=== PATIENT | female | born 1975 | race Caucasian/White ===

== ENCOUNTER 2022-10-15 19:31 | Emergency (ER) | payer BC ==
[2022-10-15] MEDS ORDERED: AUGMENTIN 875 MG TAB (AMOXICILLIN/CLAVULANATE) PO STA (19:44)
[2022-10-15] MEDS ORDERED: TETANUS,DIPTH,PERTUSS P/F (BOOSTRIX) 0.5 ML VIAL IM ONE (19:45)
--- NOTE | 2022-10-15 20:09 | ED General ---
General Chief Complaint: Bite-Animal/Human/Insect Stated Complaint: ANIMAL BITE RIGHT HAND Nursing Triage Note: Pt presents with a dog bite to her left hand and a puncture wound to the back of her right leg Source of Information: Patient History of Present Illness Date Seen by Provider: Oct 15, 2022 Time Seen by Provider: 19:36 Initial Comments 46-year-old female presenting with complaints of dog bite to her right hand and back of her left leg. She states that it was her own dog had bit her. She had felt that it was a response to territorial invasion. She felt like she had gotten into his territory in space and he had reacted by biting her hand and bit the back of her right leg. She is unsure when her last tetanus shot was. She was having a lot of pain in the right hand where she had the bite. She has several puncture wounds and then there is a superficial laceration on the palmar surface of her right hand. Bleeding is controlled with pressure. Timing/Duration: 1/2 Hour Severity: Moderate Modifying Factors: worse with Movement Associated Systoms: No Chest Pain, No Cough, No Diaphoresis, No Fever/Chills, No Headaches, No Loss of Appetite, No Malaise, No Nausea/Vomiting, No Rash, No Seizure, No Shortness of Air, No Syncope, No Weakness Allergies and Home Medications Allergies Coded Allergies: Sulfa (Sulfonamide Antibiotics) (Verified Allergy, Unknown, 10/15/22) Patient Home Medication List Home Medication List Reviewed: Yes Amoxicillin/Potassium Clav (Amox Tr-K Clv 875-125 mg Tab) 875 Mg-125 Mg Tablet, 1 EACH PO BID Prescribed by: WON SANTOYO on 10/15/222009 Ibuprofen (Ibuprofen) 800 Mg Tablet, 800 MG PO Q8H PRN for PAIN Prescribed by: WON SANTOYO on 10/15/222009 Review of Systems Review of Systems Constitutional: No chills, No fever EENTM: no symptoms reported Respiratory: no symptoms reported Cardiovascular: no symptoms reported Gastrointestinal: no symptoms reported Genitourinary: no symptoms reported Musculoskeletal: see HPI Skin: see HPI Psychiatric/Neurological: Denies Numbness, Denies Paresthesia Past Febeiog-Ekllhl-Nondmg Hx Patient Social History Tobacco Use?: No Use of E-Cig and/or Vaping dev: No Substance use?: No Alcohol Use?: No Pt feels they are or have been: No Physical Exam Vital Signs Vital Signs - First Documented 10/15/22 19:36 Temp 36.5 Pulse 100 Resp 18 B/P (MAP) 139/84 (102) Pulse Ox 99 O2 Delivery Room Air Capillary Refill : Less Than 3 Seconds Height, Weight, BMI Height: '" Weight: lbs. oz. kg; BMI Method: General Appearance: No Apparent Distress, WD/WN Cardiovascular: Regular Rate, Rhythm, Normal Peripheral Pulses Extremity: Normal Capillary Refill, No Pedal Edema, Other (There is mild swelling and tenderness of the right hand especially along the fifth metacarpal bone with several puncture hampton on the extensor surface and a superficial laceration to the palmar surface. She also has a puncture wound to the back of her left calf. Bleeding is controlled with pressure.) Neurologic/Psychiatric: Alert, Oriented x3, No Motor/Sensory Deficits, manager strategy II- XII Norm as Tested Skin: Warm/Dry Progress/Results/Core Measures Suspected Sepsis SIRS Temperature: Pulse: 100 Respiratory Rate: 18 Blood Pressure 139 /84 Mean: 102 Results/Orders My Orders Orders - WON SANTOYO MD Hand 3 View Right (10/15/22 19:44) Dipht,Pertuss(Acell),Tet Adult (Boostrix (10/15/22 19:45) Amoxicillin/Clavulanate Tablet (Augmenti (10/15/22 19:44) Medications Given in ED Current Medications Medications Dose Ordered Sig/Osvaldo Route Start Time Stop Time Status Last Admin Dose Admin Diphtheria/ Tetanus/Acell Pertussis 0.5 ml ONCE ONCE IM 10/15/22 19:45 10/15/22 19:46 DC 10/15/22 19:59 0.5 ML Vital Signs/I&O 10/15/22 10/15/22 19:36 20:12 Temp 36.5 36.5 Pulse 100 100 Resp 18 18 B/P (MAP) 139/84 (102) 139/84 Pulse Ox 99 99 O2 Delivery Room Air Room Air Capillary Refill : Less Than 3 Seconds Blood Pressure Mean: 102 Progress Note #1: Progress Note Wounds were cleaned with chlorhexidine scrub soap and sterile water by the nurses. Apply Steri-Strips to the superficial laceration on the palm of the right hand. Obtain x-rays of the hand to ensure there is no bony involvement. Update tetanus booster and start on Augmentin as an antibiotic. Ibuprofen for pain. Progress Note #2: Progress Note On my review of the three-view films of the right hand there is no acute fracture. Proceed with antibiotics and anti-inflammatories at home for pain. Keep wounds clean with soap and water. Watch for signs of infection. Follow-up with clinic for continued concerns. Diagnostic Imaging Diagonstic Imaging: Xray Plain Films/CT/US/NM/MRI: hand Comments [facility], [place] NAME: TIFFANIE GEE [facility] REC#: [id number] PT STATUS: DEP ER : 1975 PHYSICIAN: WON SANTOYO MD ADMIT DATE: 10/15/22/ER FS Signed Date of Exam:10/15/22 HAND 3 VIEW RIGHT EXAM: Hand 3 view right INDICATION: Trauma. Dog bite. Pain over 5th metacarpal. COMPARISON: None. FINDINGS: No fracture or malalignment. No radiopaque foreign body. No soft tissue gas. IMPRESSION: Negative right hand radiographs. Dictated by: Dictated on workstation # [id number] Dict: 10/15/222010 Trans: 10/15/222133 [facility] [id number] Interpreted by: OSCAR DAVIDSON MD Electronically signed by: OSCAR DAVIDSON MD 10/15/222133 Reviewed: Reviewed by Me (I reviewed the radiologist report at 2043) Departure Impression Primary Impression: Dog bite of multiple sites of right hand and fingers Qualified Codes: S61.451A - Open bite of right hand, initial encounter; S61.259A - Open bite of unspecified finger without damage to nail, initial encounter; W54.0XXA - Bitten by dog, initial encounter Additional Impression: Dog bite of left calf Qualified Codes: S81.852A - Open bite, left lower leg, initial encounter; W54.0XXA - Bitten by dog, initial encounter Disposition: 01 HOME, SELF-CARE Condition: Stable Departure-Patient Inst. Decision time for Depature: 20:09 Referrals: DWAYNE WYNN APRN (PCP/Family) Primary Care Physician Patient Instructions: Animal Bites ED, Wound Care ED Add. Discharge Instructions: There were no broken bones on the x-rays of the hand. Keep the wounds clean with soap and water. May apply antibiotic ointment to help prevent infection. Take the full course of antibiotics to help treat for the dog bite and help prevent infection. Follow-up with the clinic and your primary care provider for continued concerns. You may use ice and elevation to help with pain. Take ibuprofen and/or acetaminophen to help with pain and inflammation. All discharge instructions reviewed with patient and/or family. Voiced understanding. Scripts Ibuprofen (Ibuprofen) 800 Mg Tablet 800 MG PO Q8H PRN for PAIN for 10 Days, #30 TAB 0 Refills Prov: WON SANTOYO MD 10/15/22 Amoxicillin/Potassium Clav (Amox Tr-K Clv 875-125 mg Tab) 875 Mg-125 Mg Tablet 1 EACH PO BID for dog bite for 7 Days, #14 TAB 0 Refills Prov: WON SANTOYO MD 10/15/22 WON SANTOYO MD Oct 15, 2022 20:09
[2022-10-15] MEDS ORDERED: IBUP-1780 PO (20:10)
[2022-10-15] MEDS ORDERED: AMOX1TAB12 PO (20:10)
[2022-10-15 20:12] VITALS: BP 139/84
--- NOTE | 2022-10-15 20:15 | Diagnostic Imaging Report ---
EXAM: Hand 3 view right INDICATION: Trauma. Dog bite. Pain over 5th metacarpal. COMPARISON: None. FINDINGS: No fracture or malalignment. No radiopaque foreign body. No soft tissue gas. IMPRESSION: Negative right hand radiographs. Dictated by: Dictated on workstation # [id number]
== END 2022-10-15 20:13 | disposition home or self-care (01) ==
LOC: ER FS 19:39
DX: S61.451A Open bite of right hand, initial encounter (principal); S81.852A Open bite, left lower leg, initial encounter; S61.256A Open bite of right little finger without damage to nail, initial encounter; Z88.0 Allergy status to penicillin; Z88.2 Allergy status to sulfonamides; Z28.310 Unvaccinated for COVID-19; Z23 Encounter for immunization; W54.0XXA Bitten by dog, initial encounter
CPT/HCPCS: 73130; 90715